=== PATIENT | male | born 1945 | race Caucasian/White ===

== ENCOUNTER 2020-09-12 05:32 | Outpatient (RCR) | payer MEDICARE ==
[~2020-09-12] VITALS: Ht 172.7 cm; Wt 86.3 kg
[~2020-09-12 05:32] MED LIST: FURO-124 PO; LOSA50TA63 PO; ROFL500T PO; RT-ALBUINH INH; TIOT18CA2 IH
== END 2020-09-12 10:42 | disposition home or self-care (01) ==
LOC: PREOP 05:32
PROVIDERS: ATTEND Radiology Radiation Oncology
DX: Z01.812 Encounter for preprocedural laboratory examination (principal); C61 Malignant neoplasm of prostate; Z20.828 Contact with and (suspected) exposure to other viral communicable diseases
CPT/HCPCS: 87635

== ENCOUNTER 2020-09-14 10:42 | Day surgery (SDC) | payer MEDICARE ==
[2020-09-14] VITALS (10 sets, daily range): BP systolic 88–184; BP diastolic 49–110
[~2020-09-14] VITALS: Ht 172.7 cm; Wt 86.3 kg
--- NOTE | 2020-09-14 11:01 | Progress Note-Pre Operative ---
Pre-Operative Progress Note H&P Reviewed The H&P was reviewed, patient examined and no changes noted. Date Seen by Provider: Sep 14, 2020 Time Seen by Provider: 11:00 Date H&P Reviewed: Sep 14, 2020 Time H&P Reviewed: 11:00 Pre-Operative Diagnosis: Prostate cancer cT1c, PSA 7.98, [place] 7 (3+4) JOSE L CHAN MD Sep 14, 2020 11:01
--- NOTE | 2020-09-14 11:04 | Discharge Inst-Simple/Standard ---
Discharge Inst-Standard Reconcile Patient Problems Problems Reviewed?: Yes Discharge Medications New, Converted or Re-Newed RX: Other (patient already has) Patient Instructions/Follow Up Plan of Care/Instructions/FU: 09/29/20 arrive at 1:00 pm for treatment planning ct simulation at [facility] Activity as Tolerated: Yes Discharge Diet: No Restrictions JOSE L CHAN MD Sep 14, 2020 11:04
[2020-09-14] MEDS ORDERED: LACTATED RINGERS 1,000 ML IV PRN (11:19)
[2020-09-14] MEDS ORDERED: LEVOFLOXACIN 500 MG/100 ML IV 100 ML IV ONE (11:30)
[2020-09-14] MEDS ORDERED: fentaNYL INJECTION 100 MCG/2 ML AMP ONE (12:09)
[2020-09-14] MEDS ORDERED: MIDAZOLAM 2 MG/2 ML (VERSED) VIAL ONE (12:09)
[2020-09-14] MEDS ORDERED: ONDANSETRON 4 MG/2 ML (SDV) Z0FRAN ONE (12:18)
[2020-09-14] MEDS ORDERED: proPOfol 200 MG/20 ML (DIPRIVAN) VIAL IV ONE (12:18)
[2020-09-14] MEDS ORDERED: LIDOCAINE PF 2% 5 ML (XYLOCAINE) VIAL ONE (12:18)
[2020-09-14] MEDS ORDERED: SEVOFLURANE (ULTANE) 15 ML INHAL SOLN ONE (12:18)
--- NOTE | 2020-09-14 12:54 | Progress Note-Post Operative ---
Post-Operative Progess Note Surgeon (s)/Safety Counselor (s) Surgeon Brittany COOK MD Safety Counselor: N/A Pre-Operative Diagnosis Prostate cancer cT1c, PSA 7.98, [place] 7 (3+4) Post-Operative Diagnosis Same as preop Procedure & Operative Findings Date of Procedure 09/14/20 Procedure Performed/Findings (1) Placement of fiducial gold seed markers (2) Injection of biodegradable hydrogel prostate-rectal spacer utilizing the SpaceOAR system Anesthesia Type General Estimated Blood Loss Estimated blood loss (mL): Minimal Specimens/Packing Specimens Removed N/A Packing: N/A JOSE L CHAN MD Sep 14, 2020 12:54
--- NOTE | 2020-09-14 13:13 | Anesthesia-General Post-Op ---
General Patient Condition Mental Status/LOC: Same as Preop Cardiovascular: Satisfactory Nausea/Vomiting: Absent Respiratory: Satisfactory Pain: Controlled Complications: Absent Post Op Complications Complications None Follow Up Care/Instructions Patient Instructions None needed. Anesthesia/Patient Condition Patient Condition Patient is doing well, no complaints, stable vital signs, no apparent adverse anesthesia problems. No complications reported per nursing. LITTLE JAVED CRNA Sep 14, 2020 13:13
--- NOTE | 2020-09-14 13:40 | NUR ---
TO AMB SURG FROM PAR PER CART. ALERT, ON O2 AT 4L PER NC ON ARRIVAL WITH SAO2 89-90% RA. DENIES PAIN OR NAUSEA. NO BLEEDING AT PERINEUM OR RECTUM. PO FLUIDS PROVIDED.
--- NOTE | 2020-09-14 14:10 | NUR ---
O2 NOW AT 2.5 L PER NC WITH SAO2 98%. REMAINS ALERT, CHEERFUL AND DENIES COMPLAINTS.
--- NOTE | 2020-09-14 14:40 | NUR ---
HAS BEEN ON ROOM AIR 20 MIN WITH SAO2 93-94%. NO BLEEDING AT PERINEUM OR RECTUM. DENIES COMPLAINTS. UP WITH ASSIST TO BR TO VOID, GAIT STEADY. STATES HE IS READY FOR DISMISSAL.
== END 2020-09-14 14:42 | disposition home or self-care (01) ==
LOC: SDC 10:42
PROVIDERS: ATTEND Radiology Radiation Oncology
DX: C61 Malignant neoplasm of prostate (principal); I10 Essential (primary) hypertension; M10.9 Gout, unspecified; J43.9 Emphysema, unspecified; Z87.11 Personal history of peptic ulcer disease; Z79.51 Long term (current) use of inhaled steroids; Z79.899 Other long term (current) drug therapy; Z85.828 Personal history of other malignant neoplasm of skin; Z87.891 Personal history of nicotine dependence; Z83.3 Family history of diabetes mellitus; Z80.0 Family history of malignant neoplasm of digestive organs
CPT/HCPCS: 87081

== ENCOUNTER 2020-09-29 09:30 | Outpatient (RCR) | payer MEDICARE, OTHER | END 2020-10-17 09:45 | disposition home or self-care (01) | LOC: ONC 09:30 | PROVIDERS: ATTEND Radiology Radiation Oncology | DX: C61 Malignant neoplasm of prostate (principal); I10 Essential (primary) hypertension; J44.9 Chronic obstructive pulmonary disease, unspecified | CPT/HCPCS: 77300; 77301; 77334; 77338; 99204 ==

== ENCOUNTER 2020-12-16 14:50 | Outpatient (RCR) | payer MEDICARE | END 2021-01-15 | disposition home or self-care (01) | LOC: ONC 14:50 | PROVIDERS: ATTEND Radiology Radiation Oncology | DX: C61 Malignant neoplasm of prostate (principal); I10 Essential (primary) hypertension; J44.9 Chronic obstructive pulmonary disease, unspecified; Z87.891 Personal history of nicotine dependence | CPT/HCPCS: 77300; 77336; 77338; 77385 ==

== ENCOUNTER 2021-02-02 15:00 | Outpatient (RCR) | payer MEDICARE | END 2021-05-03 | disposition home or self-care (01) | LOC: ONC 15:00 | PROVIDERS: ATTEND Radiology Radiation Oncology | DX: C61 Malignant neoplasm of prostate (principal); I10 Essential (primary) hypertension; J44.9 Chronic obstructive pulmonary disease, unspecified; Z87.891 Personal history of nicotine dependence | CPT/HCPCS: 84153; G0463; 99213 ==